=== PATIENT | female | born 2000 | race Two or more races ===

== ENCOUNTER 2022-08-31 16:45 | Outpatient (RCR) | payer BC, SELFPAY | END 2022-11-03 13:12 | disposition home or self-care (01) | PROVIDERS: Visit Provider Emergency Medicine | DX: M25.561 Pain in right knee (principal); Z51.89 Encounter for other specified aftercare | CPT/HCPCS: 97110; 97140; 97161 ==

== ENCOUNTER 2023-09-19 16:45 | Outpatient (RCR) | payer BC, SELFPAY | END 2024-01-17 23:59 | disposition home or self-care (01) | PROVIDERS: Visit Provider Registered Nurse | DX: M79.661 Pain in right lower leg (principal); Z51.89 Encounter for other specified aftercare | CPT/HCPCS: 97110; 97161 ==